=== PATIENT | female | born 1960 | race Asian ===

== ENCOUNTER 2018-04-28 14:32 | Emergency (ER) | payer BC ==
[2018-04-28] MEDS ORDERED: Al Hydrox/Mg Hydrox/Simet LIQ* 30 ML UDC PO ONE ×2 (16:37→22:18)
[2018-04-28 19:49] LABS: ABS Basophils 0.1 10^3/ul (0-0.2); ABS Eosinophils 0 10^3/ul (0-0.6); ABS Lymphocytes 1.9 10^3/ul (1.0-4.8); ABS Monocytes 0.4 10^3/ul (0-0.8); ABS Neutrophils 4.2 10^3/ul (1.5-7.7); ABS Nucleated RBC 0 10^3/ul; Eosinophil % 0.5 %; Hematocrit 44 % (35-47); Hemoglobin 14.9 g/dl (12.0-16.0); Mean Corpuscular HGB Conc 34 g/dl (31-36); Mean Corpuscular Hemoglobin 29 pg (27-31); Mean Corpuscular Volume 85 fL (80-97); Mean Platelet Volume 8.8 fL (7.4-10.4); Nucleated Red Blood Cells % 0; Platelet Count 237 10^3/ul (150-450); Red Blood Count 5.18 10^6/ul (4.00-5.40); Red Cell Distribution Width 14 % (10.5-15); White Blood Count 6.6 10^3/ul (3.5-10.8)
[2018-04-28 20:14] LABS: Albumin 5.3 g/dL (3.2-5.2); Albumin/Globulin Ratio 1.8 (1-3); BUN/Creatinine Ratio 15.8 (8-20); C Reactive Protein 2.63 mg/L (<8.01); Calcium 10.3 mg/dL (8.6-10.3); EGFR African American 94.6 (>60); EGFR Non-African American 78.2 (>60); Globulin 2.9 g/dL (2-4); Potassium 3.9 mmol/L (3.5-5.0); Total Bilirubin 0.8 mg/dL (0.2-1.0); Total Protein 8.2 g/dL (6.4-8.9)
[2018-04-28] MEDS ORDERED: Pantoprazole IV* 40 MG IV ONE (21:03)
--- NOTE | 2018-04-28 21:42 | ED ---
GI/ HPI - HPI Summary HPI Summary: 57-year-old female presents with epigastric abdominal pain for the past couple weeks. She states that she's been having increase acid production. States that she's been taking famotidine with improvement. she denies any chest pain or SOB. She says she's been having dull persistent right upper quadrant pain. States she has she had a similar episode a couple years ago and it was believed to be due to her gallbladder. she admits to occasionally diarrhea and constipation but has had normal bowel movements today. No blood in her stool. She occasionally gets dark stool but has had normal stool today. States her symptoms are worsen when she eats something acidic. - History of Current Complaint Chief Complaint: EDAbdPain Time Seen by Provider: 04/28/18 20:55 Stated Complaint: ABD PIAN, VOMITING Pain Intensity: 9 - Allergy/Home Medications Allergies/Adverse Reactions: Allergies Allergy/AdvReac Type Severity Reaction Status Date / Time Penicillins Allergy Rash Verified 04/28/18 14:46 PMH/Surg Hx/FS Hx/Imm Hx Endocrine/Hematology History: Denies: Hx Anticoagulant Therapy Cardiovascular History: Reports: Hx Myocardial Infarction - Cancer History Hx Chemotherapy: No Hx Radiation Therapy: No Infectious Disease History: No Infectious Disease History: Denies: Traveled Outside the [place] in Last 30 Days - Family History Known Family History: Positive: Non-Contributory - Social History Substance Use Type: Reports: None Smoking Status (MU): Never Smoked Tobacco Review of Systems Negative: Fever Negative: Chest Pain Negative: Shortness Of Breath Positive: Abdominal Pain. Negative: Vomiting, Diarrhea, Nausea All Other Systems Reviewed And Are Negative: Yes Physical Exam Triage Information Reviewed: Yes Vital Signs On Initial Exam: Initial Vitals Temp Pulse Resp BP Pulse Ox 97.8 F 107 18 178/111 96 04/28/18 14:44 04/28/18 14:44 04/28/18 14:44 04/28/18 14:44 04/28/18 14:44 Vital Signs Reviewed: Yes Appearance: Positive: Well-Appearing Skin: Positive: Warm, Dry Head/Face: Positive: Normal Head/Face Inspection Eyes: Positive: Normal, Conjunctiva Clear ENT: Positive: Pharynx normal Respiratory/Lung Sounds: Positive: Clear to Auscultation, Breath Sounds Present Cardiovascular: Positive: Normal, RRR Abdomen Description: Positive: Soft, Other: - tenderness RUQ Bowel Sounds: Positive: Present Musculoskeletal: Positive: Normal Neurological: Positive: Normal Psychiatric: Positive: Normal Diagnostics - Vital Signs Vital Signs Temp Pulse Resp BP Pulse Ox 04/28/18 18:48 98.5 F 101 18 168/112 96 04/28/18 16:41 98.5 F 94 14 135/94 99 04/28/18 14:44 97.8 F 107 18 178/111 96 - Laboratory Lab Results: Lab Results 04/28/18 04/28/18 04/28/18 Range/Units 19:38 19:38 19:38 WBC 6.6 (3.5-10.8) 10^3/ul RBC 5.18 (4.00-5.40) 10^6/ul Hgb 14.9 (12.0-16.0) g/dl Hct 44 (35-47) % MCV 85 (80-97) fL MCH 29 (27-31) pg MCHC 34 (31-36) g/dl RDW 14 (10.5-15) % Plt Count 237 (150-450) 10^3/ul MPV 8.8 (7.4-10.4) fL Neut % (Auto) 64.1 % Lymph % (Auto) 29.0 % [place] % (Auto) 5.5 % Eos % (Auto) 0.5 % Baso % (Auto) 0.9 % Absolute Neuts (auto) 4.2 (1.5-7.7) 10^3/ul Absolute Lymphs (auto) 1.9 (1.0-4.8) 10^3/ul Absolute Monos (auto) 0.4 (0-0.8) 10^3/ul Absolute Eos (auto) 0 (0-0.6) 10^3/ul Absolute Basos (auto) 0.1 (0-0.2) 10^3/ul Absolute Nucleated RBC 0 10^3/ul Nucleated RBC % 0 Sodium 141 (135-145) mmol/L Potassium 3.9 (3.5-5.0) mmol/L Chloride 106 (101-111) mmol/L Carbon Dioxide 27 (22-32) mmol/L Anion Gap 8 (2-11) mmol/L BUN 12 (6-24) mg/dL Creatinine 0.76 (0.51-0.95) mg/dL Est GFR ( Amer) 94.6 (>60) Est GFR (Non-Af Amer) 78.2 (>60) BUN/Creatinine Ratio 15.8 (8-20) Glucose 96 (70-100) mg/dL Lactic Acid 0.8 (0.5-2.0) mmol/L Calcium 10.3 (8.6-10.3) mg/dL Total Bilirubin 0.80 (0.2-1.0) mg/dL AST 20 (13-39) U/L ALT 18 (7-52) U/L Alkaline Phosphatase 71 (34-104) U/L Troponin I 0.00 (<0.04) ng/mL C-Reactive Protein 2.63 (<8.01) mg/L Total Protein 8.2 (6.4-8.9) g/dL Albumin 5.3 H (3.2-5.2) g/dL Globulin 2.9 (2-4) g/dL Albumin/Globulin Ratio 1.8 (1-3) Lipase 18 (11.0-82.0) U/L Result Diagrams: 04/28/18 19:38 04/28/18 19:38 Lab Statement: Any lab studies that have been ordered have been reviewed, and results considered in the medical decision making process. - Ultrasound No standard instances Ultrasound Interpretation Completed By: Radiologist Summary of Ultrasound Findings: IMPRESSION: 1. No acute findings or shadowing gallstones. 2. Small hypoechoic nodule in left lobe of liver, not visible on prior study. Differential considerations include adenoma, FNH, and atypical hemangioma. HCC. not excluded. Recommend further characterization with MRI. Re-Evaluation - Re-Evaluation First Eval Re-Evaluation Time: 22:45 Change: Improved Comment: pain is better after protonix GIGU Course/Dx - Course Course Of Treatment: 57-year-old female presents with epigastric abdominal pain for the past couple weeks. She states that she's been having increase acid production. States that she's been taking famotidine with improvement. she denies any chest pain or SOB. She says she's been having dull persistent right upper quadrant pain. States she has she had a similar episode a couple years ago and it was believed to be due to her gallbladder. she admits to occasionally diarrhea and constipation but has had normal bowel movements today. No blood in her stool. She occasionally gets dark stool but has had normal stool today. States her symptoms are worsen when she eats something acidic. On exam tenderness in the right upper quadrant. White blood count normal. CRP normal. gave protonix and feeling better. Gallbladder ultrasound shows normal gallbladder. will treat symptoms with omeprazole for potential gastritis. gave GI referral to follow-up. Patient understands agrees with plan. - Diagnoses Differential Diagnoses - Female: Gall Bladder Disease, Gastritis, Urinary Tract Infection Provider Diagnoses: Abdominal pain Discharge - Sign-Out/Discharge Documenting (check all that apply): Patient Departure Patient Received Moderate/Deep Sedation with Procedure: No - Discharge Plan Condition: Good Disposition: HOME Prescriptions: Omeprazole CAP (NF) [Prilosec CAP* 20 MG] 20 mg PO DAILY #30 cap. Patient Education Materials: Abdominal Pain (ED) Referrals: Sanjay Gloria DO [Doctor of Osteopathy] - Dara Dos Santos MD [Primary Care Provider] - Additional Instructions: take omeprazole once a day Follow up with GI Avoid acidic foods Stay upright for at least 30 mins after eating Return to ED if develop fever or any new or worsening symptoms - Billing Disposition and Condition Condition: GOOD Disposition: Home
[2018-04-28] MEDS ORDERED: Lidocaine 2% VISCOUS* 15 ML UDC PO ONE (22:18)
[2018-04-28 23:09] VITALS: BP 117/64
== END 2018-04-28 23:00 | disposition home or self-care (01) ==
LOC: ED 14:32
DX: R10.13 Epigastric pain (principal); Z88.0 Allergy status to penicillin
CPT/HCPCS: 36415; 76705; 80053; 83605; 83690; 84484; 85025; 86140; 96374; 99283; A9270-GY